=== PATIENT | female | born 1945 | race Caucasian/White ===

== ENCOUNTER 2024-02-13 19:03 | Emergency (ER) | payer MEDICARE, OTHER ==
[~2024-02-13] VITALS: Ht 172.7 cm; Wt 56.7 kg
[2024-02-13 19:18] VITALS: BP 148/83; PULSE 99; RESP 20; TEMP 98.5; O2SAT 96
[2024-02-13 20:11] LABS: BASOPHIL % 0.7 % (0.0-0.2); EOSINOPHIL # 0.1 10^3/uL (0.0-0.2); EOSINOPHIL % 2.3 % (0.0-5.0); HEMATOCRIT(ML) 40.6 % (36.0-46.0); HEMOGLOBIN 13.1 g/dL (12.0-15.0); LYMPHOCYTES # 0.75 10^3/uL1 (1.0-4.8); LYMPHOCYTES % 13.3 % (24.0-44.0); MEAN CORP HGB 30.5 pg (26-34); MEAN CORP HGB CONCENTRATION 32.3 g/dL (33-36.5); MEAN CORP VOLUME 94.4 fL (78-100); MONOCYTES # 0.6 10^3/uL (0.3-0.8); MONOCYTES % 9.8 % (5.0-12.0); NEUTROPHIL # 4.2 10^3/uL (1.8-7.7); NEUTROPHILS % 73.9 % (41.0-85.0); PLATELET COUNT 322 10^3/uL (150-400); RED CELL DISTRIBUTION WIDTH 13.6 % (11.5-14.5); WHITE BLOOD CELL 5.6 10^3/uL (4.5-11.0)
[2024-02-13 20:14] LABS: +ADD MANUAL DIFF(NO CHRG) NO
[2024-02-13 20:18] VITALS: BP 138/84; PULSE 87; RESP 20; TEMP 97.8; O2SAT 97
[2024-02-13 20:33] LABS: ALBUMIN(ML) 3.4 g/dL (3.4-5.0); ALBUMIN/GLOBULIN RATIO 1.03; ANION GAP 10.7; BUN/CREATININE RATIO 17.3 (10.0-20.0); CALCIUM 9.1 mg/dL (8.4-10.5); CARBON DIOXIDE 23.9 mmol/L (20.0-32); CREATININE SERUM 0.52 mg/dL (0.59-1.40); POTASSIUM 3.6 mmol/L (3.6-5.2)
[2024-02-13 21:14] VITALS: BP 157/93; PULSE 86; RESP 20; TEMP 97.8; O2SAT 97
== END 2024-02-13 21:17 | disposition home or self-care (01) ==
LOC: ER 19:03
DX: R00.2 Palpitations (principal); E07.9 Disorder of thyroid, unspecified; J44.9 Chronic obstructive pulmonary disease, unspecified; Z90.49 Acquired absence of other specified parts of digestive tract; Z88.0 Allergy status to penicillin; Z88.5 Allergy status to narcotic agent; Z91.040 Latex allergy status
CPT/HCPCS: 36415; 71045; 80053; 82550; 83880; 84484; 85025; 93005; 99285